=== PATIENT | male | born 1980 | race Caucasian/White ===

== ENCOUNTER 2022-09-01 08:30 | Outpatient (REF) | payer BC, SELFPAY ==
[2022-09-01 11:15] LABS: MANUAL DIFF FLAG NO
[2022-09-01 11:31] LABS: Appearance Urine Clear; Color Urine Yellow; Glucose Urine UA Negative (Negative); Leukocyte Esterase Urine Negative (Negative); Nitrite Urine Negative (Negative); PH 6.5 (5.0-9.0); Specific Gravity - Urine <= 1.005 (1.005-1.025); Urine Blood Negative (Negative); Urine Ketones Negative (Negative); Urine Protein Negative (Neg-Trace)
[2022-09-01 11:43] LABS: Basophils Percent Auto 0.3 % (0-2); Eosinophils Absolute Auto 0.1 X10*3/uL (0.0-0.4); Eosinophils Percent Auto 0.8 % (0-4); Hematocrit 43.6 % (42.0-52.0); Hemoglobin 15.9 g/dl (14.0-18.0); Imm Gran Abs Auto 0.05 X10*3/uL (0.00-0.03); Imm Gran Pct Auto 0.8 % (0.0-0.4); Lymphocytes Absolute Auto 1.9 X10*3/uL (1.2-4.9); Lymphocytes Percent Auto 31.6 % (20-40); Mean Corpuscular HGB Conc 36.5 g/dl (31.0-36.0); Mean Corpuscular Hemoglobin 31.4 pg (27.0-33.0); Mean Corpuscular Volume 86.2 fL (80.0-98.0); Monocytes Absolute Auto 0.5 X10*3/uL (0.1-1.2); Monocytes Percent Auto 8.5 % (2-11); Neutrophils Absolute Auto 3.6 x10*3/uL (2.0-8.3); Platelet Count 228 X10*3/uL (160-400); Red Blood Count 5.06 X10*6/uL (4.60-5.80); Red Cell Distribution Width 13.2 % (11.0-16.0); White Blood Count 6.1 X10*3/uL (4.8-10.8)
[2022-09-01 12:15] LABS: Alanine Aminotransferase 28 U/L (0-40); Albumin Level 4.4 g/dL (3.5-5.0); Alkaline Phosphatase 67 U/L (39-117); Anion Gap 11 (12-20); Aspartate Amino Transferase 19 U/L (5-37); Bilirubin Total 1.6 mg/dL (0.0-1.0); Blood Urea Nitrogen 13 mg/dL (9-16); Calcium 9.8 mg/dL (8.4-10.2); Carbon Dioxide 28 mmol/L (22-29); Chloride 105 mmol/L (96-108); Cholesterol 190 mg/dL; Estimated Glomerular Filt Rate > 60; Glucose Fasting 94 mg/dL (60-99); HDL Cholesterol 42 mg/dL; LDL Cholesterol Calculated 132 mg/dl; Potassium 4.3 mmol/L (3.3-5.1); Sodium 140 mmol/L (135-145); Total Protein 7.2 g/dL (6.5-8.0); Triglycerides 83 mg/dL
[2022-09-01 12:39] LABS: TSH reflex Free T4 1.26 uIU/mL (0.32-4.0)
== END 2022-09-01 08:31 | disposition home or self-care (01) ==
LOC: HO.HMGCLDS 08:30
PROVIDERS: PCP Nurse Practitioner Family; Visit Provider Nurse Practitioner Family
DX: Z00.00 Encounter for general adult medical examination without abnormal findings (principal)
CPT/HCPCS: 36415; 80053; 80061; 81003; 84443; 85025

== ENCOUNTER 2022-10-08 13:31 | Outpatient (REF) | payer BC, SELFPAY ==
[2022-10-08 15:55] LABS: Bilirubin Direct 0.2 mg/dL (0.0-0.5); Bilirubin Total 0.5 mg/dL (0.0-1.0)
== END 2022-10-08 13:32 | disposition home or self-care (01) ==
LOC: HO.HMGCLDS 13:31
PROVIDERS: PCP Nurse Practitioner Family; Visit Provider Nurse Practitioner Family
DX: R17 Unspecified jaundice (principal)
CPT/HCPCS: 36415; 82247; 82248

== ENCOUNTER 2022-12-27 09:42 | Outpatient (AMB) | payer BC, SELFPAY ==
--- NOTE | 2022-12-27 07:02 | A.OFFPC_ITS ---
Intake Visit Reasons: Anxiety Discuss Allergies No Known Allergies Allergy (Verified 12/27/22 07:15) Medication List - Last Reconciled 12/27/22 by KARLO Willoughby No Known Home Meds Tobacco use date assessed: 08/25/22 HPI Anxiety Discuss HPI Details Pt c/o palpitations. He reports that he will intermittently feel like his heart is beating too hard. Pt states that this lasts only for one heartbeat. He had a holter done in August 2020??, missing results. Will order repeat holter. Denies chest pain, shortness of breath, and dizziness. Connection interrupted during call with pt, left message regarding holter order and plan for this testing. [facility] Family History Father Substance use disorder Brother Mental health disorder Social History Housing: House Patient Tobacco Use Status: Never used Tobacco e-Cigarette/Vaping Use: Never Used Second Hand Smoke Exposure: No service: No Current occupational status: employed Current occupation: [employer] Current occupational exposures/hazards: No Cognitive needs: No Hearing needs: No Vision needs: No Questionnaire Thrive Questionnaire Date Thrive assessed: 08/25/22 ROCIO-7 AMB Questionnaire ROCIO-7 Date ROCIO - 7 assessed: 08/25/22 Source: Developed by Drs. Andrey Gutierrez, Verito Vaz, Julio César Miller and colleagues, with an educational radha from [employer]. Review of Systems Const Reports as per HPI Physical exam (Primary Care) Tobacco/Smoking Status: Tobacco use Status Tobacco use date assessed 08/25/22 12/27/22 07:03 Patient Tobacco Use Status Never used Tobacco 12/27/22 07:03 e-Cigarette/Vaping Use Never Used 12/27/22 07:03 Thrive Assessment: Date of Thrive Assessment Date Thrive assessed 08/25/22 12/27/22 07:03 Const General: cooperative Orientation/consciousness: patient oriented x3 Neuro General: patient oriented x3 Psych Appearance: grossly normal Mental Status: mental status grossly normal Speech and movement: Clear speech present Affect: normal affect Attitude: cooperative Thought process: Normal thought process present Thought content: Normal thought content present Insight: Good insight present (Psych) Judgement: Good judgement present (Psych) Telehealth Telehealth Location of provider rendering services: practice address Location of patient: address on file Patient Identification confirmed using: Name, : Yes Telehealth method: video Patient verbally consented to treatment: Yes Patient verbally consented to billing insurance company: Yes Patient informed of any privacy concerns related to visit: Yes Minutes spent on Phone/Video with Pt.: 10 Assessment and Plan Assessment & Plan (1) Palpitations: Code(s): R00.2 - Palpitations Plan: Holter ordered Plan The patient agreed to the use of a hospitalist medical director for this encounter. Scribed for KARLO Jacobson by Jolynn Duncan hospitalist medical director, on 12/27/2022 at 07:05 EST. Orders: Orders ECG 3 day holter monitor Today R00.2 - Palpitations Coding Level of Care Code Tele Est Pt Level 3 (17987) Diagnoses Palpitations R00.2
== END 2022-12-27 14:19 | disposition home or self-care (01) ==
PROVIDERS: PCP Nurse Practitioner Family; Visit Provider Nurse Practitioner Family
DX: R00.2 Palpitations (principal)
CPT/HCPCS: 99213

== ENCOUNTER → 2023-01-09 12:50 | Outpatient (REF) | payer BC, SELFPAY ==
--- NOTE | 2023-01-09 12:53 | HM_ITS ---
Conclusion: 1. Patient was monitored for total period of 3 days 2. Baseline was normal sinus with average heart of 67 beats per minute 3. No significant pauses noted 4. Rare PACs and PVCs noted 5. Patient reported 4 events that correlated with isolated PVCs MTDD
== END ==
LOC: HO.CARD 12:50
PROVIDERS: PCP Nurse Practitioner Family; Visit Provider Nurse Practitioner Family
DX: R00.2 Palpitations (principal)
CPT/HCPCS: 93242

== ENCOUNTER → 2023-01-09 12:53 | Outpatient (BNV) | payer BC, SELFPAY | PROVIDERS: PCP Nurse Practitioner Family; Visit Provider Internal Medicine Cardiovascular Disease | DX: I49.3 Ventricular premature depolarization (principal) | CPT/HCPCS: 93244 ==

== ENCOUNTER 2023-09-06 07:26 | Outpatient (AMB) | payer BC, SELFPAY ==
--- NOTE | 2023-09-06 07:29 | MHC.PC.OV ---
Vital Signs 09/06/23 07:31 Height 5 ft 8 in Weight 193 lb BMI 29.3 BP 96/60 Blood Pressure Location Lt brachial Position Sitting Pulse 72 Pulse Source Pulse Oximeter Pulse Oximetry (%) 97 Oxygen Delivery Method Room Air Intake Visit Reasons: Annual PE Intake Note: Pt is here today for his PE Allergies No Known Allergies Allergy (Verified 09/06/23 07:42) Medication List - Last Reconciled 09/06/23 by KARLO Willoughby No Known Home Meds Tobacco use date assessed: 09/06/23 Dental Screening Dental Screen Date: 09/06/23 Did you have a dental visit in the last 12 months?: Yes Did you have a dental problem in the last 6 months where you did not have access to dental care?: No Was dental information given to patient?: Patient has dentist HPI Annual PE HPI Details Pt is here for a PE. Will order labs. Pt reports increased anxiety. He reports being very anxious to leave his house, also afraid of getting covid. Pt is seeing a therapist. He is interested in trying a medication. Will start sertraline 25mg at night. Denies any SI and HI. [facility] Family History Father Substance use disorder Brother Mental health disorder Social History Housing: House Patient Tobacco Use Status: Never used Tobacco e-Cigarette/Vaping Use: Never Used Second Hand Smoke Exposure: No service: No Current occupational status: employed Current occupation: [employer] Current occupational exposures/hazards: No Cognitive needs: No Hearing needs: No Vision needs: Yes Questionnaire PHQ-9 Over the last 2 weeks, how often have you been bothered by any of the following problems? 1. Little interest or pleasure in doing things: not at all 2. Feeling down, depressed, or hopeless: several days 3. Trouble falling or staying asleep, or sleeping too much: several days 4. Feeling tired or having little energy: not at all 5. Poor appetite or overeating: not at all 6. Feeling bad about yourself - or that you are a failure or have let yourself or your family down: several days 7. Trouble concentrating on things, such as reading the newspaper or watching television: not at all 8. Moving or speaking so slowly that other people could have noticed. Or the opposite - being so fidgety or restless that you have been moving around a lot more than usual: not at all 9. Thoughts that you would be better off or of hurting yourself in some way: not at all Total score: 3 Depression Screening Interpretation: Negative (starting sertraline today) Depression Screening Done: Yes 02732 - PHQ-9 Billing: Yes Source: Developed by Drs. Andrey Gutierrez, Verito Vaz, Julio César Miller and colleagues, with an educational radha from [employer]. Thrive Questionnaire Date Thrive assessed: 09/06/23 I am a: Patient What is your living situation today?: I have a steady place to live Within the past 12 months, did the food you bought not last and you didn't have the money to get more?: Never true Within the past 12 months, did you worry whether your food would run out before you got money to buy more?: Never true Do you have trouble paying for medicines?: No Do you have trouble getting transportation to medical appointments?: No Do you have trouble paying your heating and electricity bill?: No Do you have trouble taking care of your child, family member or friend?: No Do you have trouble with day-to-day activities such as bathing, preparing meals, shopping, managing finances, etc.?: No Are you currently unemployed and looking for a job?: No Are you interested in more education?: No Currently or been in a relationship where the following occur: no concerns reported THRIVE Score: 0 AUDIT C Alcohol Use Questionnaire (AUDIT-C) 1. How often do you have a drink containing alcohol?: Never Total Score: 0 ROCIO-7 AMB Questionnaire ROCIO-7 Date ROCIO - 7 assessed: 09/06/23 Feeling nervous, anxious, or on edge: 0 = Not at all Not being able to stop or control worryin = Not at all Worrying too much about different things: 1 = Several days Trouble relaxin = Not at all Being so restless that it is hard to sit still: 1 = Several days Becoming easily annoyed or irritable: 0 = Not at all Feeling afraid as if something awful might happen: 0 = Not at all Total ROCIO-7 score (0-4 normal; 5-9 mild; 10-14 moderate; 15-21 severe): 2 Source: Developed by Drs. Andrey Gutierrez, Verito Vaz, Julio César Miller and colleagues, with an educational radha from [employer]. ROCIO-7 Assessment Billing ROCIO-7 Assessment Tool: ROCIO-7 Assessment 10056 Review of Systems Const Denies chills and Denies fever(s) Eyes Denies blurry vision ENT Denies vertigo, Denies dizziness and Denies sore throat Card Denies chest pain at rest, Denies chest pain with activity, Denies diaphoresis, Denies dyspnea and Denies dyspnea on exertion Resp Denies cough, Denies dyspnea, Denies dyspnea on exertion and Denies wheezing GI Denies abdominal pain, Denies melena, Denies hematochezia, Denies constipation, Denies diarrhea and Denies loose stools Denies hematuria Musc Denies numbness and Denies tingling Skin/Breast Denies lesions Neuro Denies vertigo, Denies dizziness, Denies numbness and Denies tingling Psych Reports anxiety, Denies depression, Denies homicidal ideation, Denies suicidal ideation and Denies other (substance abuse) Aller/Immun Denies wheezing Physical exam (Primary Care) Vital Signs: Last Vital Signs Pulse 72 09/06/23 07:31 BP 96/60 09/06/23 07:31 Pulse Ox 97 09/06/23 07:31 Oxygen Delivery Method Room Air 09/06/23 07:31 BMI result Body Mass Index 29.3 Tobacco/Smoking Status: Tobacco use Status Tobacco use date assessed 09/06/23 09/06/23 07:34 Patient Tobacco Use Status Never used Tobacco 09/06/23 07:34 e-Cigarette/Vaping Use Never Used 09/06/23 07:34 PHQ-9: PHQ-9 Score PHQ-9: Total score 3 09/06/23 07:34 Depression Screening Interpretation: Negative (starting sertraline today) Thrive Assessment: Date of Thrive Assessment Date Thrive assessed 09/06/23 09/06/23 07:35 Currently or been in a relationship where the following occur: no concerns reported Const General: cooperative Nutritional Appearance: well nourished Orientation/consciousness: patient oriented x3 HENMT Other: cerumen noted bilat, right>left, after ear lavage Head: Yes normal to inspection, Yes normocephalic and Yes atraumatic Eyes General: appearance normal, both eyes and all related structures Alignment and Position: alignment normal and position normal Neck Neck: Yes normal visual inspection and Yes no lymphadenopathy Thyroid: Thyroid normal Resp Effort & Inspection: normal respiratory effort Auscultation: clear to auscultation bilaterally Cardio Rate: regular rate Rhythm: regular rhythm Heart sounds: S1 normal heart sound present, S2 normal heart sound present and no murmurs GI Palpation (GI): Soft to palpation and nontender Auscultation: normal bowel sounds Male General Exam: Yes normal external exam Penis: normal penis Scrotum: scrotum normal, testes descended bilaterally and no inguinal hernias Testes: no testicular mass Skin Rashes: no rashes Neuro General: patient oriented x3, moves all extremities, no focal motor deficits and deep tendon reflexes 2+ bilaterally Romberg Test: Negative Psych Appearance: grossly normal Mental Status: mental status grossly normal Speech and movement: Normal speech and movement present Affect: normal affect Attitude: cooperative Thought process: Normal thought process present Thought content: Normal thought content present Insight: Good insight present (Psych) Judgement: Good judgement present (Psych) Office Procedures Cerumen Removal From which ear canal was the cerumen removed: bilateral Removal: irrigation Notes: patient tolerated procedure well, no complications and ear canal clear [id number] Irrigation/Lavage Assessment and Plan Assessment & Plan (1) Encounter for routine adult physical exam with abnormal findings: Code(s): Z00.01 - Encounter for general adult medical examination with abnormal findings Plan: Labs ordered (2) Excessive cerumen in both ear canals: Code(s): H61.23 - Impacted cerumen, bilateral Plan: Ears flushed in office (3) Anxiety: Code(s): F41.9 - Anxiety disorder, unspecified Plan: Starting sertraline 25mg Plan The patient agreed to the use of a medical center representative for this encounter. Scribed for KARLO Jacobson by Jolynn Duncan medical center representative, on 09/06/2023 at 07:35 EST. Orders: Orders UA CC w/rflx Micro + Cult Today Z00.00 - Encounter for general adult medical examination without abnormal findings Complete Blood Count Auto Diff Today Z00.00 - Encounter for general adult medical examination without abnormal findings Comprehensive [place]. Panel Fast Today Z00.00 - Encounter for general adult medical examination without abnormal findings TSH reflex Free T4 Today Z00.00 - Encounter for general adult medical examination without abnormal findings Lipid Panel Today Z00.00 - Encounter for general adult medical examination without abnormal findings Medications: New sertraline 25 mg PO DAILY 90 tabs 0RF Coding Level of Care Code Est Pt Prev Care 40-64y(98398) Diagnoses Encounter for routine adult physical exam with abnormal findings Z00.01 Excessive cerumen in both ear canals H61.23 Anxiety F41.9 CPT Codes Office Procedure - CPT: 54003-Azi Irrigation/Lavage ([id number]) Additional Codes ROCIO-7 Assessment Billing - ROCIO-7 Assessment Tool: ROCIO-7 Assessment 01753 ([id number])
[2023-09-06 07:31] VITALS: BP 96/60; PULSE 72; O2SAT 97; BMI 29.3
== END 2023-09-06 08:19 | disposition home or self-care (01) ==
PROVIDERS: Visit Provider Nurse Practitioner Family
DX: Z00.01 Encounter for general adult medical examination with abnormal findings (principal); H61.23 Impacted cerumen, bilateral; F41.9 Anxiety disorder, unspecified
CPT/HCPCS: 69209; 99213; 99396

== ENCOUNTER 2023-10-14 09:20 | Outpatient (REF) | payer BC, SELFPAY ==
[2023-10-14 11:29] LABS: MANUAL DIFF FLAG NO
[2023-10-14 11:33] LABS: Basophils Percent Auto 0.5 % (0-2); Eosinophils Absolute Auto 0.2 X10*3/uL (0.0-0.4); Eosinophils Percent Auto 2.9 % (0-4); Hematocrit 44.1 % (42.0-52.0); Hemoglobin 15.8 g/dl (14.0-18.0); Imm Gran Abs Auto 0.04 X10*3/uL (0.00-0.03); Imm Gran Pct Auto 0.7 % (0.0-0.4); Lymphocytes Absolute Auto 1.8 X10*3/uL (1.2-4.9); Lymphocytes Percent Auto 30.7 % (20-40); Mean Corpuscular HGB Conc 35.8 g/dl (31.0-36.0); Mean Corpuscular Hemoglobin 30.2 pg (27.0-33.0); Mean Corpuscular Volume 84.2 fL (80.0-98.0); Mean Platelet Volume 9.7 fL (9.4-12.4); Monocytes Absolute Auto 0.5 X10*3/uL (0.1-1.2); Monocytes Percent Auto 8.7 % (2-11); Neutrophils Absolute Auto 3.3 x10*3/uL (2.0-8.3); Neutrophils Percent Auto 56.5 % (45-73); Platelet Count 218 X10*3/uL (160-400); Red Blood Count 5.24 X10*6/uL (4.60-5.80); White Blood Count 5.9 X10*3/uL (4.8-10.8)
[2023-10-14 11:41] LABS: Appearance Urine Clear; Color Urine Yellow; Glucose Urine UA Negative (Negative); Leukocyte Esterase Urine Negative (Negative); Nitrite Urine Negative (Negative); PH >= 9.0 (5.0-9.0); Specific Gravity - Urine 1.015 (1.005-1.025); Urine Blood Negative (Negative); Urine Ketones Negative (Negative); Urine Protein Trace mg/dL (Neg-Trace)
[2023-10-14 12:03] LABS: Alanine Aminotransferase 56 U/L (0-40); Albumin Level 4.4 g/dL (3.5-5.0); Alkaline Phosphatase 70 U/L (39-117); Anion Gap 11 (12-20); Aspartate Amino Transferase 29 U/L (5-37); Bilirubin Total 1.1 mg/dL (0.0-1.0); Blood Urea Nitrogen 12 mg/dL (9-16); Calcium 9.6 mg/dL (8.4-10.2); Carbon Dioxide 28 mmol/L (22-29); Chloride 104 mmol/L (96-108); Cholesterol 213 mg/dL (<200); Estimated Glomerular Filt Rate > 60; Glucose Fasting 93 mg/dL (60-99); HDL Cholesterol 44 mg/dL (>40); LDL Cholesterol Calculated 153 mg/dL (<100); Potassium 3.7 mmol/L (3.3-5.1); Sodium 139 mmol/L (135-145); Total Protein 7.7 g/dL (6.5-8.0); Triglycerides 80 mg/dL (<150)
[2023-10-14 12:04] LABS: TSH reflex Free T4 1.04 uIU/mL (0.32-4.0)
== END 2023-10-14 09:21 | disposition home or self-care (01) ==
LOC: HO.HMGCLDS 09:20
PROVIDERS: PCP Nurse Practitioner Family; Visit Provider Nurse Practitioner Family
DX: Z00.00 Encounter for general adult medical examination without abnormal findings (principal); Z13.89 Encounter for screening for other disorder
CPT/HCPCS: 36415; 80053; 80061; 81003; 84443; 85025

== ENCOUNTER 2023-10-27 11:21 | Outpatient (REF) | payer BC, SELFPAY ==
--- NOTE | ~2023-10-27 | US_ITS ---
EXAMINATION: US ABDOMEN COMPLETE CLINICAL INFORMATION: Abnormal levels of other serum enzymes. Elevated liver enzymes. COMPARISON: None available. TECHNIQUE: Real-time imaging of the abdominal viscera. Limited visualization due to bowel gas. FINDINGS: PANCREAS: Limited visualization of pancreatic tail and head. Imaged portion of pancreatic body is unremarkable. ABDOMINAL AORTA: Nonaneurysmal. INFERIOR VENA CAVA: Visualized portions are normal. LIVER: The liver is normal in size. The liver contour is normal. Parenchymal echogenicity is normal. GALLBLADDER: No gallstones. No gallbladder wall thickening. COMMON BILE DUCT: Normal in caliber measuring 0.2 cm in diameter. RIGHT KIDNEY: No hydronephrosis. No renal calculi. Limited visualization. The kidney measures 11.1 cm in maximum dimension. LEFT KIDNEY: No hydronephrosis. No renal calculi. Limited visualization. The kidney measures 10.5 cm in maximum dimension. SPLEEN: Normal. The spleen measures 9.6 cm in maximum dimension. FREE FLUID: None. US/US abdomen complete IMPRESSION: Unremarkable exam.
== END 2023-10-27 11:22 | disposition home or self-care (01) ==
LOC: HO.HMGCX 11:21
PROVIDERS: PCP Nurse Practitioner Family; Visit Provider Nurse Practitioner Family
DX: R74.8 Abnormal levels of other serum enzymes (principal)
CPT/HCPCS: 76700

== ENCOUNTER 2023-12-07 08:29 | Outpatient (AMB) | payer BC, SELFPAY ==
--- NOTE | 2023-12-07 07:17 | MHC.PC.OV ---
Intake Visit Reasons: 3 month follow up Allergies No Known Allergies Allergy (Verified 09/06/23 07:42) Medication List - Last Reconciled 12/07/23 by KARLO Willoughby sertraline 25 mg PO DAILY Tobacco use date assessed: 09/06/23 Dental Screening Dental Screen Date: 09/06/23 HPI 3 month follow up HPI Details Anxiety: Pt is currently taking sertraline 25mg. He reports noticing an improvement in his anxiety with this med. Denies any SI and HI. PFSH Family History Father Substance use disorder Brother Mental health disorder Social History Housing: House Patient Tobacco Use Status: Never used Tobacco e-Cigarette/Vaping Use: Never Used Second Hand Smoke Exposure: No service: No Current occupational status: employed Current occupation: [employer] Current occupational exposures/hazards: No Cognitive needs: No Hearing needs: No Vision needs: Yes Questionnaire Thrive Questionnaire Date Thrive assessed: 09/06/23 ROCIO-7 AMB Questionnaire ROCIO-7 Date ROCIO - 7 assessed: 09/06/23 Source: Developed by Drs. Andrey Gutierrez, Verito Vaz, Julio César Miller and colleagues, with an educational radha from [employer]. Review of Systems Const Reports as per HPI Physical exam (Primary Care) Tobacco/Smoking Status: Tobacco use Status Tobacco use date assessed 09/06/23 12/07/23 07:21 Patient Tobacco Use Status Never used Tobacco 12/07/23 07:21 e-Cigarette/Vaping Use Never Used 12/07/23 07:21 Thrive Assessment: Date of Thrive Assessment Date Thrive assessed 09/06/23 12/07/23 07:21 Const General: cooperative Orientation/consciousness: patient oriented x3 Neuro General: patient oriented x3 Psych Appearance: grossly normal Mental Status: mental status grossly normal Speech and movement: Clear speech present Affect: normal affect Attitude: cooperative Thought process: Normal thought process present Thought content: Normal thought content present Insight: Good insight present (Psych) Judgement: Good judgement present (Psych) Telehealth Telehealth Telehealth Platform: [facility] Location of provider rendering services: practice address Location of patient: address on file Patient Identification confirmed using: Name, : Yes Telehealth method: video Patient verbally consented to treatment: Yes Patient verbally consented to billing insurance company: Yes Patient informed of any privacy concerns related to visit: Yes Minutes spent on Phone/Video with Pt.: 5 Assessment and Plan Assessment & Plan (1) Anxiety: Code(s): F41.9 - Anxiety disorder, unspecified Plan: sertraline is working well. Plan The patient agreed to the use of a medical office professional instructor for this encounter. Scribed for URSULA Jacobson-MORGAN by Jolynn Duncan medical office professional instructor, on 12/07/2023 at 07:15 EST. Medications: Refilled sertraline 25 mg PO DAILY 90 tabs 3RF Coding Level of Care Code Tele Est Pt Level 3 (59993) Diagnoses Anxiety F41.9
== END 2023-12-07 09:08 | disposition home or self-care (01) ==
LOC: HO.HMGC 08:29
PROVIDERS: PCP Nurse Practitioner Family; Visit Provider Nurse Practitioner Family
DX: F41.9 Anxiety disorder, unspecified (principal)
CPT/HCPCS: 99213

== ENCOUNTER 2024-08-19 12:14 | Outpatient (REF) | payer BC, SELFPAY ==
[2024-08-19 13:54] LABS: Alanine Aminotransferase 30 U/L (0-40); Albumin Level 4.3 g/dL (3.5-5.0); Alkaline Phosphatase 65 U/L (39-117); Anion Gap 11 (12-20); Aspartate Amino Transferase 23 U/L (5-37); Bilirubin Direct 0.2 mg/dL (0.0-0.5); Bilirubin Total 0.6 mg/dL (0.0-1.0); Blood Urea Nitrogen 11 mg/dL (9-16); Calcium 9.7 mg/dL (8.4-10.2); Carbon Dioxide 29 mmol/L (22-29); Chloride 103 mmol/L (96-108); Estimated Glomerular Filt Rate > 60; Glucose Random 108 mg/dL (60-115); Potassium 3.7 mmol/L (3.3-5.1); Sodium 139 mmol/L (135-145); Total Protein 7.4 g/dL (6.5-8.0)
[2024-08-19 14:11] LABS: HBS Num1 0.25 mIU/mL (0-7.99); HBc Num1 0.23 S/CO (0.00-0.79); HBsAGNum1 0.42 S/CO (0.00-0.99); Hepatitis B Core Antibody Nonreactive (Nonreactive); Hepatitis B Surface Antigen Negative (Negative); ~Hepatitis B Surface Antibody NONREACTIVE (Nonreactive); ~Hepatitis C Antibody Nonreactive (Nonreactive)
--- OUTSIDE RECORDS SUMMARY | 2024-08-19 14:37 | XMS_ITS | Encounter Summary ---
Author Organization [facility] Address [address] [place] [address] Care Team Providers Care Medical Clinic Manager Name Role Phone Kwadwo Davis MD Primary Care Provider [phone] Alek Aguiar NP Primary Care Provider [phone] Reason for Visit * Reason Comments Medical Record Encounter Details Date Type Department Care Team (Late st Contact Info) Description 07/23/2020 Counts Include [facility] Medical Records [address] [place] [address] Unknown Social History Tobacco Use Types Packs/Day Years Used Date Smoking Tobacco: Never Smokeless Tobacco: Never Alcohol Use Standard Drinks/Week Comments Not Currently 0 (1 standard drink = 0.6 oz pur e alcohol) PHQ-2 Answer Date Recorded PHQ-2 Score 1 07/13/2020 Sex and Gender Information Value Date Recorded Sex Assigned at Male 05/16/2019 12:06 PM EST Legal Sex Male 4:39 PM EDT Gender Identity Male 05/16/2019 12:06 PM EST Sexual Orientation Straight 05/16/2019 12 :06 PM EST 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 No / Unsure 07/13/2020 1:20 PM EDT documented as of this encounter Plan of Treatment Not on file documented as of this encounter Visit Diagnoses Not on filedocumented in this encounter Care Teams Medical Clinic Manager Relationship Specialty Start Date End Date Kwadwo Davis MD PCP - General Family Medicine 10/16/18 06/14/22 Alek Aguiar NP [address] [address] PCP - General Nurse Practitioner 06/15/22 documented as of this encounter
--- OUTSIDE RECORDS SUMMARY | 2024-08-19 14:37 | XMS_ITS | Clinical Summary ---
Author Organization [facility] Address [address] [place] [address] Care Team Providers Care E Learning Designer Name Role Phone Unavailable Primary Care Provider Unavailabl e Social History Tobacco Use Types Packs/Day Years Used Date Smoking Tobacco: Never Assessed Sex and Gender Information Value Date Recorded Sex Assigned at Not on file Legal Sex Male 8:10 PM EST Gender Identity Not on file Sexual Orientation Not on file Plan of Treatment Health Maintenance Due Date Last Done Comments DTaP,Tdap,and Td Vaccines (1 - Tdap) 1998 Hepatitis B Vaccines (1 of 3 - 19+ 3-dose series) 1998 Cholesterol Screening (Lipid Panel) 05/18/2023 Colorectal Cancer Screening: Colonoscopy 05/18/2023 Depression Screening 05/18/2023 HIV Screening 05/18/2023 Hepatitis C Screening 05/18/2023 Social Influencers of Health Screening 05/18/2023 COVID-19 Vaccine ( - 2023-2 5 season) 2023 Influenza Vaccine (Season Ended) 2024 HIB Vaccines Aged Out No longer eligi ble based on patient's age to complete this topic HPV Vaccines Aged Out No longer eligi ble based on patient's age to complete this topic Hepatitis A Vaccines Aged Out No long er eligible based on patient's age to complete this topic IPV Vaccines Aged Out No longer eligi ble based on patient's age to complete this topic MMR Vaccines Aged Out No longer eligi ble based on patient's age to complete this topic Meningococcal ACWY Vaccine Aged Out N o longer eligible based on patient's age to complete this topic Meningococcal B Vaccine Aged Out No l onger eligible based on patient's age to complete this topic Pneumococcal Vaccine: Pediat rics (0 to 5 Years) and At-Risk Patients (6 to 64 Years) Aged Out No longer eligible b ased on patient's age to complete this topic RSV Immunization Patients Un nazanin 20 months Aged Out No longer eligible b ased on patient's age to complete this topic Varicella Vaccines Aged Out No longer eligible based on patient's age to complete this topic
--- OUTSIDE RECORDS SUMMARY | 2024-08-19 14:37 | XMS_ITS | Continuity of Care Document ---
Author Organization [facility] Address [address] [place] [address] Care Team Providers Care Biology Department Chair Name Role Phone NasirAlek sky Jolly TERRELL Primary Care Provider [phone] Encounters Date Type Department Care Team Description 11/04/2021 Telephone [facility] Medicine [address] [place] [phone] Kwadwo Davis MD Results 10/21/[address] [phone] Kwadwo Davis MD Patient Questions 10/14/2021 2:30 PM EDT Minor Procedure/Test [facility] Cardiology [address] [phone] Elvia Melara Tech Palpitations (Primary Dx) 08/18/2021 3:30 PM EDT Office Visit [facility] [address] [place] [address] Ivanna Betancourt LICSW Generalized anxiety disorder; 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 Telephone [facility] Medicine [address] [place] [address] Kwadwo Davis MD Results 08/10/2021 Orders Only [facility] Cardiology [address] [phone] Bernarda Rivers MD 08/10/2021 Telephone [facility] [address] [place] [address] Ivanna Betancourt LICSW 08/10/2021 1:00 PM EDT Consult (Initial) [facility] Neurology [address] [facility] [address] [place] [address] Ata Kebede MD Dizziness (Primary Dx); Anxiety 08/10/2021 10:25 AM EDT CPE - Comprehensive Physical Exam [address] [phone] Kwadwo Davis MD Routine general medical examination at a health care facility (Primary Dx); Need for vaccination; Vertigo; Family history of stroke; Non-recurrent bilateral inguinal hernia without obstruction or gangrene; Episodic tension-type headache, not intractable; Schizoid personality; Anxiety 03/29/[address] [phone] Kwadwo Davis MD Cough ; Cold 11/24/[address] [address] Kwadwo Davis MD Records 07/23/2020 [facility] Medical Records [address] [place] [address] Unknown 07/13/2020 Travel 07/13/2020 1:45 PM EDT CPE - Comprehensive Physical Exam [address] [address] Kwadwo Davis MD Routine general medical examination at a health care facility (Primary Dx); Family history of stroke; Non-recurrent bilateral inguinal hernia without obstruction or gangrene; Episodic tension-type headache, not intractable; Anxiety; Need for vaccination 07/08/2020 Travel 11/22/2019 Travel 11/22/2019 9:00 AM EDT Office Visit [address] [phone] Kwadwo Davis MD Anxiety (Primary Dx); Episodic tension-type headache, not intractable; Non-recurrent bilateral inguinal hernia without obstruction or gangrene 09/07/2019 Travel 07/07/[address] [phone] Kawdwo Davis MD Cancellation (will call back if needed) 06/20/2019 5:00 PM EST Office Visit [facility] [address] [place] [address] Nano Pagan MD Anxiety (Primary Dx) 05/29/2019 1:30 PM EST Office Visit [facility] [address] [place] [phone] Niki Stahl, OD Encounter for ophthalmic examination and evaluation (Primary Dx); Family history of glaucoma; Myopia of both eyes; Disorder of refraction 05/23/2019 Orders Only [facility] Medicine [address] [place] [phone] Kwadwo Davis MD 05/20/2019 9:05 AM EST CPE - Comprehensive Physical Exam [address] [phone] Kwadwo Davis MD Lipid screening (Primary Dx); Screening for cardiovascular condition; Screening for diabetes mellitus; Routine general medical examination at a health care facility; Episodic tension-type headache, not intractable; Lack of interest; Family history of stroke; Non-recurrent bilateral inguinal hernia without obstruction or gangrene; Need for vaccination 12/14/2018 8:20 AM EDT Office Visit [facility] General Surgery [address] [facility] [address] [place] [address] Shantal Richter NP Unilateral inguinal hernia without obstruction or gangrene, recurrence not specified (Primary Dx); Encounter for removal of sutures 12/04/2018 Surgery/Major Procedure GEN VAS UNSPECIFIED Nas Batista MD 11/19/2018 10:30 AM EDT Office Visit [facility] Pre-Admission Testing [address] [facility] [address] [place] [address] Mayi Lee NP Preop examination (Primary Dx); Unilateral inguinal hernia without obstruction or gangrene, recurrence not specified; Frequent headaches 11/19/2018 10:00 AM EDT Nurse Visit [facility] Pre-Admission Testing 123 [facility] [address] [place] [address] Ju John RN Unilateral inguinal hernia without obstruction or gangrene, recurrence not specified (Primary Dx) 10/22/2018 9:30 AM EDT Consult (Initial) [facility] General Surgery [address] [facility] [address] [place] [address] Nas Batista MD Non-recurrent unilateral inguinal hernia without obstruction or gangrene (Primary Dx) 10/18/2018 5:15 PM EDT Office Visit [facility] [address] [address] Nano Pagan MD Left inguinal hernia (Primary Dx) Allergies No known active allergies Medications Multiple Vitamin (MULTI VITAMIN MENS) Tab 1 TABLET DAILY Active diphenhydrAMINE- APAP, sleep, (Tylenol PM Extra Strength) 25-500 MG Tab Take 1 tablet by mouth at night if needed for sleep Active Iron-Vitamin C 100-250 MG Tab Take 1 tablet by mouth 1 (one) time each day Active Active Problems Problem Noted Date Diagnosed Date Vertigo 08/10/2021 Overview (08/11/2021): 08/10/2021: Patient notes brief episode of vertigo a couple of weeks ago that spontaneously resolved. No further symptoms. Hx of HANSEN's. FH of stroke. Discussed DDx, but etiology is unclear. Neurological exam is completely normal today and he is asymptomatic. Will get EKG to check out heart. Discussed that I think we need help from Neurology specialist; discussed about possible brain imaging. If symptoms recur, he should be evaluated at a location with imaging capabilities for more rapid workup. He understands and agrees with plan. 08/10/21 Neuro note: Foster Stapleton is a 41 y.o. male presenting for evaluation of dizziness. ?? In retrospect, the dizziness spell was too brief and too obscured by anxiety to characterize it, but the timecourse is most consistent with a brief BPPV vertigo spell. We discussed that hydration and overall health maintenance are the most important interventions. If it recurs, he will try to identify more features and contact me to be reassessed. ?? Other somatic phenomena are too mild to suggest a pathological cause. I offered an MRI to confirm no baseline abnormalities, since the somatic anxiety phenomena have changed over the years, but he agrees it isn't urgent and deferred it. If symptoms change, we will reassess, ?? With RLS vs Akathisia/fidgeting, we discussed how many medications can affect it, but unless it is bothering him it isn't likely worth treating. Can try melatonin, gabapentin, or a dopamine agonist in escalating order through PCP but due to neuropsychiatric history may best be monitored by during adjustments as dopamine agonists/modulators can increase OCD/anxiety traits. 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 +Stressors. He is moving back in with his mother, which will be a good thing for him. He was seeing Dr. De La Paz, who left [facility]. Patient would like to establish with new provider; order placed Routine general medical exam ination at a health care facility 05/20/2019 Overview (08/10/2021): CPE for 41 y.o. male. BP is WNL. BMI is elevated; discussed about weight loss with diet and exercise. Patient is due for eye exam; UTD for dental exam. Last immunizations: Tdap 2019. Received 2 COVID shots. Flu shot: receives. He would like labs next year. Repeat CPE in 1 year. Family history of stroke 05/20/2019 Overview (08/11/2021): 07/13/20: 3 out of 4 grandparents. We may consider baby aspirin at some point (45? 50?) for CV prophylaxis, but for now getting more active most important 08/10/2021: Patient had episode of vertigo recently (see other problem). Rediscussed baby aspirin. We will see what Neurology says and consider baby aspirin after that. He agrees with plan. 08/10/21 Neuro note: Foster Stapleton is a 41 y.o. male presenting for evaluation of dizziness. ?? In retrospect, the dizziness spell was too brief and too obscured by anxiety to characterize it, but the timecourse is most consistent with a brief BPPV vertigo spell. We discussed that hydration and overall health maintenance are the most important interventions. If it recurs, he will try to identify more features and contact me to be reassessed. ?? Other somatic phenomena are too mild to suggest a pathological cause. I offered an MRI to confirm no baseline abnormalities, since the somatic anxiety phenomena have changed over the years, but he agrees it isn't urgent and deferred it. If symptoms change, we will reassess, ?? With RLS vs Akathisia/fidgeting, we discussed how many medications can affect it, but unless it is bothering him it isn't likely worth treating. Can try melatonin, gabapentin, or a dopamine agonist in escalating order through PCP but due to neuropsychiatric history may best be monitored by during adjustments as dopamine agonists/modulators can increase OCD/anxiety traits. Neurologist thought it was BPPV, so no aspirin needed at this time Anxiety 05/20/2019 Overview (08/10/2021): 05/20/2019: Patient notes lack of interest in doing activities, but thinks he is just lazy. He doesn't think needs meds, but he will think about referral. He will call if he would like to start at any point. 11/22/2019: Patient has been seeing Dr. De La Paz for anxiety; likes talking with him. He received Buspar in May from [facility], but hasn't been taking much and makes him nauseous. He isn't interested in other medications at this time, so we will continue just with counseling for the time being. F[facility] at [facility], but I asked him to call sooner if needs help before that. He is comfortable with this plan. 07/13/2020: Patient continues to see Dr. De La Paz every 4 weeks; likes seeing him. He still doesn't want to be on medications right now. Offered 6 month follow up, but he thinks 1 year is okay. He will call sooner PRN. 08/10/2021: Anxiety in general has been there, but not a huge thing. +Stressors. He is moving back in with his mother, which will be a good thing for him. He was seeing Dr. De La Paz, who left [facility]. Patient would like to establish with new provider; order placed Episodic tension-type headache, not intractable 05/20/2019 Overview (08/10/2021): 05/20/2019: At the end of the visit, patient notes that gets tension like headache on left side that usually happens when posture bad and staring at computer screen. It resolves when he changes his posture. Sounds like tension type HANSEN. He will call if symptoms worsen or change. 11/22/2019: He notes headaches resolved after a few months. He wonders if related to decreased stress 07/13/2020: Patient notes headaches maybe every other night; he thinks they are mostly tension or related to not eating/drinking enough. He takes ibuprofen PRN mostly; sometimes Excedrin PRN (warned him about rebound headaches with this med). Offered Neurology, but he declines at this point because not that bad/severe. He will call if worsens. 08/10/2021: He notes that HANSEN's not often Non-recurrent bilateral ingu inal hernia without obstruction or gangrene 05/20/2019 Overview (08/10/2021): 05/20/2019: Patient s/p left inguinal hernia repair earlier this year; he notes went well. Has small one on right that he is watching for now. 11/22/2019: Stable 07/13/2020: Been fine. Aches now and then if sits in wrong away. 08/10/2021: No recent issues Immunizations Name Administration Dates Next Due COVID-19, mRNA (Moderna Pre Fall 2022) Monovalent, 100 mcg/0.5 ml or 50 mcg/0.25 ml dose 10/07/2020,09/08/2020 Covid-19, mRNA (Pfizer Comir ashlie) Seasonal, 30 mcg/0.3 mL (12+) 03/10/2023 Covid-19, mRNA (Pfizer Pre 2022) Monovalent, 30 mcg/0.3 ml cleo-sucrose (12+) 08/31/2021 Influenza (SEASONAL) - 01/28/2019 Influenza,injectable,MDCK, Prsrv Fr,Quad 022,07/13/2020 Influenza,injectable,quad,Prsrv Fr 12/30/2022, Tdap 05/20/2019 Family History Medical History Relation Name Comments Alcohol/Drug Brother Jayjay Stapleton alcoholic? rehabed? Depression Brother Jayjay Stapleton Seizures Brother Jayjay Stapleton ?related to EtOH/not eating/virus Alcohol/Drug Father Zach Stapleton alcoholic? Depression Father Zach Stapleton maybe? Gout Father Zach Stapleton Heart Disorder Father Zach Stapleton Maybe Cancer - Pancreatic Maternal grandfather Nas East 90 y/o Stroke Maternal grandfather Nas East several , minor Stroke Maternal grandmother Misty Godoy minor Cancer (?Type) Other Stroke Paternal grandfather Andrey Stapleton per manently disabling, 1985 Diabetes Neg Hx Relation Name Status Comments Brother Jayjay Stapleton Father Zach Stapleton Maternal grandfather Nas East Maternal grandmother Misty Godoy Other Paternal grandfather Andrey Stapleton Social History Smoking Status as of 08/19/2024 Tobacco Use Types Packs/Day Years Used Date Smoking Tobacco: Never Assessed PHQ-2 Answer Date Recorded [facility] PHQ-2 SEVERITY SCORE (Range 0-6) 0 08/17/2021 Intimate Partner Violence Answer Date R ecorded Fear of Current or Ex-Partner Not on file Emotionally Abused Not on file 12/26/2022 Physically Abused Not on file 12/26/2022 Sexually Abused Not on file 12/26/2022 Feel Safe at Home Not on file 12/26/2022 Sex and Gender Information Value Date Recorded Sex Assigned at Male 05/16/2019 12:06 PM EST Legal Sex Male 4:39 PM EDT Gender Identity Male 05/16/2019 12:06 PM EST Sexual Orientation Straight 05/16/2019 12 :06 PM EST Last Filed Vital Signs Vital Sign Reading Time Taken Comments Blood Pressure 100/61 08/10/2021 12:52 PM EDT Pulse 76 08/10/2021 12:52 PM EDT Temperature 36.8 ??C (98.3 ??F) 11/22/2019 8:59 AM ED T Respiratory Rate 16 06/20/2019 5:22 PM EST Oxygen Saturation 98% 06/20/2019 5:22 PM EST Inhaled Oxygen Concentration - - Weight 83.7 kg (184 lb 9.6 oz) 08/10/2021 9:58 A M EDT Height 174 cm (5' 8.5 ) 08/10/2021 9:58 AM EDT Body Mass Index 27.66 08/10/2021 9:58 AM EDT Plan of Treatment Not on file Procedures * Due to [place] [employer] law, this organization might not be sharing negative HIV tests. Procedure Name Priority Date/Time Associated Diagnosis Comments EXT ECG RECORDING >48 HRS< 7 D ,CONTINUOUS RHYTHM RECORDING/STORAGE W CONNECTION/INITIAL RECORDING Routine 11/01/2021 Palpitations EXTERNAL ECG RECORDING > 48 HRS < 7 DAYS BY CONTINUOUS RHYTHM RECORDING/STORAGE; REVIEW AND INTERP Routine 10/27/2021 1:45 PM EDT Palpitations EKG-TO BE READ & BILLED BY ADULT OR PEDIATRIC CARDIOLOGY Routine 08/10/2021 9:43 AM EDT Vertigo LIPID PANEL WITH REFLEX TO DIRECT LDL Routine 05/23/2019 7:44 AM EST Lipid screening Screening for cardiovascular condition VENIPUNCTURE Routine 05/23/2019 7:44 AM EST Screening for diabetes mellitus UNSPECIFIED MAJOR PROCEDURE 12/04/2018 UNSPECIFIED MAJOR PROCEDURE 12/04/2018 Results * Due to [place] [employer] law, this organization might not be sharing negative HIV tests. * EXT ECG RECORDING >48 HRS< 7 D ,CONTINUOUS RHYTHM RECORDING/STORAGE W CONNECTION/INITIAL RECORDING (11/01/2021) Impressions Ryan Arroyo, - 11/01/2021 Underlying sinus rhythm. Overall no high-grade or significant arrhythmias. Overall rare ectopy PVCs corresponded to them triggered events and one of the diary events, as detailed above. Narrative Ryan Arroyo, - 11/01/2021 Foster Stapleton ??completed a 3 day holter monitor test. Device Type: Zio XT Indication: Palpitations Date(s) of Monitor: 10/14/2021 through 10/17/2021 Total Time Analyzed: 3 days and 0 hours Referring Providor: Kwadwo Davis MD Interpretating Criminal Defense Lawyer: Ryan Arroyo DO Date of Interpretation/Report: 11/01/2021 Monitor Details: 1. ??Underlying rhythm is sinus. 2. ??Average heart rate 68 bpm. ??Minimum heart rate 45 bpm. ??Maximal heart rate 154 beats minute. 3. ??Rare PAC 4. ??Rare PVC 5. ??No ventricular tachycardia 6. ??No PSVT 7. ??No significant pauses 8. ??No significant AV block 9. ??No atrial fibrillation or atrial flutter. 10. ??There were 4 diary events symptoms of skipped/irregular beats. ??Corresponding to underlying sinus rhythm only one of the 4 corresponded to a single PVC. 11. ??There were 4 triggered events, each of these triggered events correspond underlying sinus rhythm with a PVC. us Kwadwo Davis MD CARDIOVASCULAR-WITH INBSKT RTG F inal Result * EXTERNAL ECG RECORDING > 48 HRS < 7 DAYS BY CONTINUOUS RHYTHM RECORDING/STORAGE; REVIEW AND INTERP (10/27/2021 1:45 PM EDT) us Kwadwo Davis MD CARDIOVASCULAR-WITH INBSKT RTG F inal Result * EKG-TO BE READ & BILLED BY ADULT OR PEDIATRIC CARDIOLOGY (08/10/2021 9:43 AM EDT) Pathologist [facility] VENTRICULAR RATE 72 BPM MUS E EKG SYSTEM ATRIAL RATE 72 BPM MUSE EKG SYSTEM P-R INTERVAL 172 ms MUSE EK G SYSTEM QRS DURATION 86 ms MUSE EK G SYSTEM QT 386 ms MUSE EKG SYSTEM QTC 422 ms MUSE EKG SYSTEM P AXIS 34 degrees MUSE EKG SYSTEM R AXIS -24 degrees MUSE EKG SYSTEM T AXIS 47 degrees MUSE EKG SYSTEM EKG INTERPRETATION Normal sinus rhythm Possible Left atrial enlargement RSR' or QR pattern in V1 suggests right ventricular conduction delay Borderline ECG No previous ECGs available Confirmed by BERNARDA RIVERS ([id number]) on 08/11/2021 5:44:06 AM MUSE EKG SYSTEM 08/10/2021 9:43 AM EDT 08/11/2021 5:44 AM EDT us Kwadwo Davis MD CARDIOVASCULAR-WITH INBSKT RTG F inal Result MUSE EKG SYSTEM * HEMOGLOBIN A1C (05/23/2019 7:44 AM EST) Hemoglobin A1C 4.6 <5.7 % of total Hgb [email or web address] Comment: For the purpose of screening for the presence of diabetes: <5.7% ? Consistent with the absence of diabetes 5.7-6.4% ?Consistent with increased risk for diabetes ?(prediabetes) > or =6.5% ??Consistent with diabetes This assay result is consistent with a decreased risk of diabetes. Currently, no consensus exists regarding use of hemoglobin A1c for diagnosis of diabetes in children. According to [place] Diabetes Association (ADA) guidelines, hemoglobin A1c <7.0% represents optimal control in non- diabetic patients. Different metrics may apply to specific patient populations. Standards of Medical Care in Diabetes(ADA). Estimated Average Glucose 86 mg/dL (calc) [email or web address] 05/23/2019 7:44 AM EST 05/23/2019 9:46 AM EST Narrative Resulting Agency Comment [id number] Kwadwo Davis MD LABORATORY Final Result [facility] [address] [place] [address] * (ABNORMAL) LIPID PANEL WITH REFLEX TO DIRECT LDL (05/23/2019 7:44 AM EST) Cholesterol 171 <200 mg/dL [facility] HDL Cholesterol 45 >40 mg/dL [facility] Triglyceride 72 <150 mg/dL [facility] LDL Cholesterol 110(H) mg/dL (calc) [email or web address] Comment: Reference range: <100 Desirable range <100 mg/dL for primary prevention; ?? <70 mg/dL for patients with CHD or diabetic patients with > or = 2 CHD risk factors. LDL-C is now calculated using the Valentin calculation, which is a validated novel method providing better accuracy than the Friedewald equation in the estimation of LDL-C. Tien KINSEY et al. RANI. 2013;310(19): 2411-8230 (http://education.Giraffic.ReSnap/faq/IEU209) CHOL/HDL Ratio 3.8 <5.0 (calc) [facility] Cholesterol Non-HDL 126 <130 mg/dL (calc) [facility] Comment: For patients with diabetes plus 1 major ASCVD risk factor, treating to a non-HDL-C goal of <100 mg/dL (LDL-C of <70 mg/dL) is considered a therapeutic option. 05/23/2019 7:44 AM EST 05/23/2019 9:46 AM EST Narrative Resulting Agency Comment [id number] Kwadwo Davis MD LABORATORY Final Result [facility] [address] [place] [address] * UNSPECIFIED MAJOR PROCEDURE (12/04/2018) Nas Batista MD PROCEDURES Final Result * UNSPECIFIED MAJOR PROCEDURE (12/04/2018) Nas Batista MD PROCEDURES Final Result Visit Diagnoses Diagnosis Start Date Left inguinal hernia Inguinal hernia without mention of obstruction or gangrene, unilateral or unspecified, (not specified as recurrent) 10/18/2018 Non-recurrent unilateral inguinal hernia without obstruction or gangrene 10/22/2018 Preop examination Preoperative examination, unspecified 11/19/2018 Unilateral inguinal hernia without obstruction or gangrene, recurrence not specified 11/19/2018 Frequent headaches 11/19/2018 Unilateral inguinal hernia without obstruction or gangrene, recurrence not specified 11/19/2018 Unilateral inguinal hernia without obstruction or gangrene, recurrence not specified 12/14/2018 Encounter for removal of sutures 12/14/2018 Lipid screening Screening for lipoid disorders 05/20/2019 Screening for cardiovascular condition Screening for other and unspecified cardiovascular conditions 05/20/2019 Screening for diabetes mellitus 05/20/2019 Routine general medical examination at a health care facility 05/20/2019 Episodic tension-type headache, not intractable Episodic tension type headache 05/20/2019 Lack of interest 05/20/2019 Family history of stroke Family history of stroke (cerebrovascular) 05/20/2019 Non-recurrent bilateral inguinal hernia without obstruction or gangrene 05/20/2019 Need for vaccination Need for prophylactic vaccination and inoculation against unspecified single disease 05/20/2019 Screening for diabetes mellitus 05/23/2019 Lipid screening Screening for lipoid disorders 05/23/2019 Screening for cardiovascular condition Screening for other and unspecified cardiovascular conditions 05/23/2019 Family history of glaucoma 05/29/2019 Encounter for ophthalmic examination and evaluation Examination of eyes and vision 05/29/2019 Myopia of both eyes Myopia 05/29/2019 Disorder of refraction Unspecified disorder of refraction and accommodation 05/29/2019 Anxiety Anxiety state, unspecified 06/20/2019 Anxiety Anxiety state, unspecified 11/22/2019 Episodic tension-type headache, not intractable Episodic tension type headache 11/22/2019 Non-recurrent bilateral inguinal hernia without obstruction or gangrene 11/22/2019 Routine general medical examination at a health care facility 07/13/2020 Family history of stroke Family history of stroke (cerebrovascular) 07/13/2020 Non-recurrent bilateral inguinal hernia without obstruction or gangrene 07/13/2020 Episodic tension-type headache, not intractable Episodic tension type headache 07/13/2020 Anxiety Anxiety state, unspecified 07/13/2020 Need for vaccination Need for prophylactic vaccination and inoculation against unspecified single disease 07/13/2020 Vertigo Dizziness and giddiness 08/10/2021 Dizziness Dizziness and giddiness 08/10/2021 Anxiety Anxiety state, unspecified 08/10/2021 Need for vaccination Need for prophylactic vaccination and inoculation against unspecified single disease 08/10/2021 Vertigo Dizziness and giddiness 08/10/2021 Family history of stroke Family history of stroke (cerebrovascular) 08/10/2021 Routine general medical examination at a health care facility 08/10/2021 Non-recurrent bilateral inguinal hernia without obstruction or gangrene 08/10/2021 Episodic tension-type headache, not intractable Episodic tension type headache 08/10/2021 Schizoid personality (HCC) Schizoid personality disorder, unspecified 08/10/2021 Anxiety Anxiety state, unspecified 08/10/2021 Abnormal EKG Nonspecific abnormal electrocardiogram (ECG) (EKG) 08/13/2021 Generalized anxiety disorder 08/18/2021 Schizoid personality (HCC) Schizoid personality disorder, unspecified 08/18/2021 Palpitations 10/14/2021 Care Teams Biology Department Chair Relationship Specialty Start Date End Date Alek Aguiar NP [address] [address] PCP - General Nurse Practitioner 06/15/22
--- OUTSIDE RECORDS SUMMARY | 2024-08-19 14:37 | XMS_ITS | Clinical Summary ---
Author Organization [facility] Address [address] [place] [id number] Phone Care Team Providers Care Supply Chain Specialist Name Role Phone Unavailable Primary Care Provider Unavailabl e Social History Tobacco Use Types Packs/Day Years Used Date Smoking Tobacco: Never Assessed Comments Unknown Sex and Gender Information Value Date Recorded Sex Assigned at Not on file Legal Sex Unknown 12/02/2016 3:25 PM EDT Gender Identity Not on file Sexual Orientation Not on file Plan of Treatment Health Maintenance Due Date Last Done Comments MMR Vaccines (1 of 1 - Stand erinn series) 1980 Varicella Vaccines (1 of 2 - 13+ 2-dose series) 1992 DTaP,Tdap,and Td Vaccines (1 - Tdap) 1997 Hepatitis B Vaccines (1 of 3 - 19+ 3-dose series) 1998 Influenza Vaccines (#1) 2023 COVID-19 Vaccine ( - 2023-2 5 season) 2023 HIB Vaccines Aged Out No longer eligi [...] on patient's age to complete this topic Men B Vaccine Aged Out No longer elig ible based on patient's age to complete this topic Meningococcal Vaccine Aged Out No chantelle sugar eligible based on patient's age to complete this topic Pneumococcal Vaccine Aged Out No long er eligible based on patient's age to complete this topic
[2024-08-20 08:00] LABS: Hepatitis A Antibody IgM 0.19 Index (0-0.79); ~Hepatitis A Antibody IgM Nonreactive (Nonreactive)
== END 2024-08-19 12:15 | disposition home or self-care (01) ==
LOC: HO.HMGCLDS 12:14
PROVIDERS: PCP Nurse Practitioner Family; Visit Provider Nurse Practitioner Family
DX: R74.8 Abnormal levels of other serum enzymes (principal)
CPT/HCPCS: 36415; 80053; 82248; 86704; 86706; 86709; 86803; 87340